=== PATIENT | male | born 1950 | race Caucasian/White ===

== ENCOUNTER 2016-11-30 21:39 | Emergency (ER) | payer MEDICARE ==
[~2016-11-30] VITALS: Ht 182.9 cm; Wt 102.3 kg
[2016-11-30] MEDS ORDERED: NORCO 325 MG-51 TA1 PO (23:29)
[2016-11-30 23:45] VITALS: BP 145/79
[2016-12-01] MEDS ORDERED: HCTZ 25MG25 MG PO (03:55)
[2016-12-01] MEDS ORDERED: PROSCAR PO (03:55)
[2016-12-01] MEDS ORDERED: ZANTAC150 M1 PO (03:56)
[2016-12-01] MEDS ORDERED: FLOMAX0.4 MG PO (03:56)
[2016-12-01] MEDS ORDERED: TYLENOL WITH CO1 TA1 PO (03:57)
== END 2016-11-30 23:45 | disposition home or self-care (01) ==
LOC: ED 21:39
DX: N20.1 Calculus of ureter (principal); K76.9 Liver disease, unspecified; I10 Essential (primary) hypertension; K21.9 Gastro-esophageal reflux disease without esophagitis
CPT/HCPCS: J1885

== ENCOUNTER → 2016-12-03 | Outpatient (CLI) | payer MEDICARE ==
[2016-11-30 23:45] VITALS: BP 145/79
[~2016-12-03] MED LIST: FLOMAX0.4 MG PO; HCTZ 25MG25 MG PO; NORCO 325 MG-51 TA1 PO; PROSCAR PO; TYLENOL WITH CO1 TA1 PO; ZANTAC150 M1 PO
== END ==
LOC: RAD 08:48
DX: K76.9 Liver disease, unspecified (principal); D73.89 Other diseases of spleen; N13.2 Hydronephrosis with renal and ureteral calculous obstruction
CPT/HCPCS: Q9967

== ENCOUNTER → 2018-09-13 | Day surgery (SDC) | payer MEDICARE | LOC: MSO 09:10 | DX: Z12.11 Encounter for screening for malignant neoplasm of colon (principal); K57.30 Diverticulosis of large intestine without perforation or abscess without bleeding; Z79.82 Long term (current) use of aspirin; I10 Essential (primary) hypertension; J44.9 Chronic obstructive pulmonary disease, unspecified; Z87.891 Personal history of nicotine dependence; K21.9 Gastro-esophageal reflux disease without esophagitis; N40.0 Benign prostatic hyperplasia without lower urinary tract symptoms | CPT/HCPCS: 00812; J2704; J7120 ==

== ENCOUNTER 2020-07-23 20:05 | Emergency (ER) | payer MEDICARE ==
[2020-07-23] MEDS ORDERED: ST. JOSEPH ASPI81 M1 PO (20:41)
[2020-07-23] MEDS ORDERED: MOBIC15 M1 PO (20:41)
[2020-07-23] MEDS ORDERED: LOSARTAN POTASS1 TA2 PO (20:43)
[2020-07-23 21:38] VITALS: BP 158/105
[2020-07-23 21:59] LABS: URINE APPEARANCE HAZY; URINE COLOR YELLOW
[2020-07-23 22:00] LABS: URINE BILIRUBIN 1+ (NEGATIVE); URINE BLOOD 50 ery/uL (NEGATIVE); URINE GLUCOSE NEGATIVE (NEGATIVE); URINE KETONE 1+ (NEGATIVE); URINE LEUKOCYTE ESTERASE TRACE (NEGATIVE); URINE NITRATE POSITIVE (NEGATIVE); URINE PROTEIN(semi-quant) 1+ mg/dL (NEGATIVE); URINE UROBILINOGEN NORMAL (NORMAL)
[2020-07-23] MEDS ORDERED: CIPRO500 M1 PO (22:49)
== END 2020-07-23 21:38 | disposition home or self-care (01) ==
LOC: ED 20:05
PROVIDERS: Nurse Practitioner
DX: R33.9 Retention of urine, unspecified (principal); N40.0 Benign prostatic hyperplasia without lower urinary tract symptoms; K21.9 Gastro-esophageal reflux disease without esophagitis; Z87.442 Personal history of urinary calculi; Z79.82 Long term (current) use of aspirin

== ENCOUNTER 2020-07-25 20:40 | Emergency (ER) | payer MEDICARE ==
[~2020-07-25 20:40] MED LIST changes: +CIPRO500 M1 PO; +LOSARTAN POTASS1 TA2 PO; +MOBIC15 M1 PO; +ST. JOSEPH ASPI81 M1 PO
[2020-07-25 21:30] LABS: HEMATOCRIT 41.4 % (42.0-52.0); HEMOGLOBIN 13.6 g/dL (13.5-18.0); MEAN CELL VOLUME 92 fl (78-100); MEAN CORPUSCULAR HEMOGLOBIN 30 pg (27-31); MEAN CORPUSCULAR HGB CONC 33 g/dL (33-37); MEAN PLATELET VOLUME 9.7 fl (7.4-10.4); PLATELET COUNT 260 K/mm3 (130-400); RED BLOOD COUNT 4.48 M/mm3 (4.20-5.60); RED CELL DISTRIBUTION WIDTH 13.4 % (11.5-14.5); WHITE BLOOD COUNT 9.4 K/mm3 (4.8-10.8)
[2020-07-25 21:45] LABS: POTASSIUM 3.4 mmol/L (3.5-5.1)
[2020-07-25 21:46] LABS: CALCIUM 9.2 mg/dL (8.3-10.5)
[2020-07-25 21:47] LABS: TOTAL PROTEIN 7.5 g/dL (6.2-8.1)
[2020-07-25 21:49] LABS: TOTAL BILIRUBIN 0.4 mg/dL (0.2-1.2)
[2020-07-25 22:12] LABS: LYMPHOCYTE 20 % (20-51); MONOCYTE 20 % (3-10); NEUTROPHILS 56 % (42-75)
[2020-07-25 22:19] LABS: URINE APPEARANCE CLEAR; URINE BILIRUBIN NEGATIVE (NEGATIVE); URINE BLOOD TRACE (NEGATIVE); URINE COLOR YELLOW; URINE GLUCOSE NEGATIVE (NEGATIVE); URINE KETONE NEGATIVE (NEGATIVE); URINE LEUKOCYTE ESTERASE 1+ (NEGATIVE); URINE NITRATE NEGATIVE (NEGATIVE); URINE PROTEIN(semi-quant) TRACE mg/dL (NEGATIVE); URINE UROBILINOGEN NORMAL (NORMAL)
[2020-07-25 22:22] VITALS: BP 161/94
== END 2020-07-25 22:22 | disposition home or self-care (01) ==
LOC: ED 20:40
PROVIDERS: Physician Assistant
DX: R33.9 Retention of urine, unspecified (principal); N40.0 Benign prostatic hyperplasia without lower urinary tract symptoms; Z90.89 Acquired absence of other organs; Z87.891 Personal history of nicotine dependence; Z88.1 Allergy status to other antibiotic agents; Z79.82 Long term (current) use of aspirin
CPT/HCPCS: A4340

== ENCOUNTER → 2020-11-14 | Outpatient (CLI) | payer MEDICARE | LOC: RAD 09:59 | DX: M51.36 Other intervertebral disc degeneration, lumbar region (principal); M43.16 Spondylolisthesis, lumbar region; M81.0 Age-related osteoporosis without current pathological fracture ==

== ENCOUNTER 2021-02-05 14:50 | Outpatient (RCR) | payer MEDICARE | END 2021-03-27 17:00 | disposition home or self-care (01) | LOC: PT 14:50 | DX: M51.16 Intervertebral disc disorders with radiculopathy, lumbar region (principal); M43.10 Spondylolisthesis, site unspecified ==

== ENCOUNTER → 2021-06-18 | Outpatient (CLI) | payer MEDICARE | LOC: LAB 09:10 → RAD 10:00 | DX: J43.2 Centrilobular emphysema (principal); S22.31XK Fracture of one rib, right side, subsequent encounter for fracture with nonunion | CPT/HCPCS: Q9967 ==

== ENCOUNTER 2021-08-15 13:44 | Outpatient (RCR) | payer MEDICARE | END 2021-09-10 | disposition home or self-care (01) | LOC: PT | DX: Z98.1 Arthrodesis status (principal) ==

== ENCOUNTER 2021-09-12 15:00 | Outpatient (RCR) | payer MEDICARE | END 2021-09-12 17:00 | disposition still patient (30) | LOC: PT 15:00 | DX: Z98.1 Arthrodesis status (principal) ==

== ENCOUNTER 2022-03-11 20:54 | Emergency (ER) | payer MEDICARE ==
[~2022-03-11] VITALS: Ht 182.9 cm; Wt 98.6 kg
[2022-03-11 21:30] LABS: BASO # 0.06 K/mm3 (0.02-0.10); EOS # 0.53 K/mm3 (0.04-0.40); EOS % 5.2 % (0.0-4.0); HEMOGLOBIN 12.8 g/dL (13.5-18.0); LYMPH# 2.96 K/mm3 (1.50-4.00); MEAN CELL VOLUME 91 fl (78-100); MEAN CORPUSCULAR HEMOGLOBIN 30 pg (27-31); MEAN CORPUSCULAR HGB CONC 33 g/dL (33-37); MEAN PLATELET VOLUME 9.3 fl (7.4-10.4); NEU # 5.46 K/mm3 (1.40-6.50); PLATELET COUNT 264 K/mm3 (130-400); RED BLOOD COUNT 4.29 M/mm3 (4.20-5.60); RED CELL DISTRIBUTION WIDTH 13.8 % (11.5-14.5); WHITE BLOOD COUNT 10.1 K/mm3 (4.8-10.8)
[2022-03-11 21:33] LABS: ALBUMIN 4.2 g/dL (3.4-4.8)
[2022-03-11 21:34] LABS: CALCIUM 9.3 mg/dL (8.3-10.5)
[2022-03-11 21:35] LABS: TOTAL PROTEIN 7.3 g/dL (6.2-8.1)
[2022-03-11 21:37] LABS: TOTAL BILIRUBIN 0.3 mg/dL (0.2-1.2)
[2022-03-11 21:41] LABS: URINE APPEARANCE CLEAR; URINE BILIRUBIN NEGATIVE (NEGATIVE); URINE BLOOD NEGATIVE (NEGATIVE); URINE COLOR YELLOW; URINE GLUCOSE NEGATIVE (NEGATIVE); URINE KETONE NEGATIVE (NEGATIVE); URINE LEUKOCYTE ESTERASE 1+ (NEGATIVE); URINE NITRATE NEGATIVE (NEGATIVE); URINE PROTEIN(semi-quant) TRACE (NEGATIVE); URINE UROBILINOGEN NORMAL (NORMAL)
[2022-03-11] MEDS ORDERED: CEPHALEXIN500 M1 PO (22:28)
[2022-03-11 22:37] VITALS: BP 158/83
== END 2022-03-11 23:01 | disposition home or self-care (01) ==
LOC: ED 20:54
PROVIDERS: Nurse Practitioner
DX: N39.0 Urinary tract infection, site not specified (principal); Z87.891 Personal history of nicotine dependence
CPT/HCPCS: J0696

== ENCOUNTER → 2024-07-26 | Outpatient (CLI) | payer MEDICARE ==
[~2024-07-26] MED LIST changes: +ATORVASTATIN CA20 MG PO; +CEPHALEXIN500 M1 PO; +CLOPIDOGREL75 M2 PO; +ELIQUIS5 MG PO; +TRAMADOL 50 MG TAB PO
== END ==
LOC: RAD 11:25
DX: M25.552 Pain in left hip (principal)

== ENCOUNTER 2024-07-27 18:50 | Emergency (ER) | payer MEDICARE ==
[~2024-07-27] VITALS: Ht 182.9 cm; Wt 95.0 kg
[~2024-07-27 18:50] MED LIST changes: -ATORVASTATIN CA20 MG PO; -CLOPIDOGREL75 M2 PO; -ELIQUIS5 MG PO; -TRAMADOL 50 MG TAB PO
[2024-07-27] MEDS ORDERED: ELIQUIS5 MG PO (19:12)
[2024-07-27] MEDS ORDERED: CLOPIDOGREL75 M2 PO (19:12)
[2024-07-27] MEDS ORDERED: ATORVASTATIN CA20 MG PO (19:12)
[2024-07-27] MEDS ORDERED: TRAMADOL 50 MG TAB PO (19:12)
[2024-07-27 19:34] LABS: PH-URINE 5.5 (5.0 - 8.0); URINE APPEARANCE CLEAR (CLEAR); URINE BILIRUBIN NEGATIVE (NEGATIVE); URINE BLOOD NEGATIVE (NEGATIVE); URINE COLOR YELLOW (YELLOW); URINE GLUCOSE NEGATIVE (NEGATIVE); URINE KETONE NEGATIVE (NEGATIVE); URINE LEUKOCYTE ESTERASE TRACE (NEGATIVE); URINE NITRATE NEGATIVE (NEGATIVE); URINE PROTEIN(semi-quant) NEGATIVE (NEGATIVE)
[2024-07-27 19:41] LABS: BASO # 0.06 K/mm3 (0.02-0.10); EOS # 0.54 K/mm3 (0.04-0.40); EOS % 6.4 % (0.0-4.0); HEMATOCRIT 41.3 % (42.0-52.0); HEMOGLOBIN 13.6 g/dL (13.5-18.0); LYMPH# 2.42 K/mm3 (1.50-4.00); MEAN CELL VOLUME 93 fl (78-100); MEAN CORPUSCULAR HEMOGLOBIN 31 pg (27-31); MEAN CORPUSCULAR HGB CONC 33 g/dL (33-37); MEAN PLATELET VOLUME 9.7 fl (7.4-10.4); MONO # 0.87 K/mm3 (0.20-0.80); NEU # 4.55 K/mm3 (1.40-6.50); PLATELET COUNT 243 K/mm3 (130-400); RED BLOOD COUNT 4.45 M/mm3 (4.20-5.60); RED CELL DISTRIBUTION WIDTH 13.2 % (11.5-14.5); WHITE BLOOD COUNT 8.5 K/mm3 (4.8-10.8)
[2024-07-27 19:48] LABS: ALBUMIN 4.3 g/dL (3.4-4.8)
[2024-07-27 19:49] LABS: CALCIUM 9.2 mg/dL (8.3-10.5)
[2024-07-27 19:51] LABS: TOTAL PROTEIN 7.8 g/dL (6.2-8.1)
[2024-07-27 19:52] LABS: TOTAL BILIRUBIN 0.3 mg/dL (0.2-1.2)
[2024-07-27] MEDS ORDERED: CIPRO500 M1 PO (20:55)
[2024-07-27] MEDS ORDERED: Ciprofloxacin 250 MG TAB PO ONE (21:00)
[2024-07-27 21:15] VITALS: BP 157/91
== END 2024-07-27 21:15 | disposition home or self-care (01) ==
LOC: ED 18:50
PROVIDERS: Physician Assistant
DX: R30.0 Dysuria (principal); R39.198 Other difficulties with micturition; Z87.442 Personal history of urinary calculi; Z89.021 Acquired absence of right finger(s); Z95.5 Presence of coronary angioplasty implant and graft; Z79.01 Long term (current) use of anticoagulants; Z79.02 Long term (current) use of antithrombotics/antiplatelets; Z79.899 Other long term (current) drug therapy